=== PATIENT | female | born 1940 | race Hispanic/Latino ===

== ENCOUNTER → 2017-05-31 | Outpatient (CLI) | payer MEDICARE, OTHER ==
[~2017-05-31] MED LIST: ASPI-555 PO; ATOR10TA69 PO; AZIT500T4 PO; BENZ200C53 PO; CARV25TA PO; DULO60CA63 PO; FLUT100B IH; GLIM2TAB3 PO; INVOK100TB PO; IPRATROPIUM/ALBUTEROL SULFATE 3 ML SOLUTION IH ONE; LORA10CA9 PO; METF500T6 PO; OLME1TAB30 PO; OMEP40CA37 PO; POTA10CA44 PO; PRED10TA3 PO; SPIR50TA PO; TRAZ-147 PO
== END | disposition home or self-care (01) ==
LOC: RAH 16:42
PROVIDERS: ATTEND Internal Medicine
DX: M47.895 Other spondylosis, thoracolumbar region (principal)
CPT/HCPCS: 71046

== ENCOUNTER → 2017-06-20 | Outpatient (CLI) | payer OTHER ==
[~2017-06-20] MED LIST changes: -IPRATROPIUM/ALBUTEROL SULFATE 3 ML SOLUTION IH ONE
== END ==
LOC: RAH 13:38
PROVIDERS: ATTEND Internal Medicine
DX: E04.2 Nontoxic multinodular goiter (principal)
CPT/HCPCS: 76536

== ENCOUNTER → 2018-07-08 | Outpatient (CLI) | payer OTHER ==
[~2018-07-08] MED LIST changes: +METF-444 PO; -METF500T6 PO; -TRAZ-147 PO; +TRAZ-187 PO
== END | disposition home or self-care (01) ==
LOC: RAH 13:08
PROVIDERS: ATTEND Internal Medicine
DX: E04.2 Nontoxic multinodular goiter (principal); J98.4 Other disorders of lung
CPT/HCPCS: 71250; 76536

== ENCOUNTER 2019-02-12 09:57 | Emergency (ER) | payer OTHER ==
[~2019-02-12 09:57] MED LIST changes: -DULO60CA63 PO; +DULO60CA64 PO; -GLIM2TAB3 PO; +GLIM2TAB4 PO; +OMEP40CA13 PO; -OMEP40CA37 PO
[2019-02-12] MEDS ORDERED: ONDANSETRON HCL 4 MG/2 ML VIAL ONE (10:24)
[2019-02-12 10:26] LABS: BASOPHILS % (AUTO) 0.4 % (0.0-5.0); EOSINOPHILS % (AUTO) 4.2 % (0.0-8.0); HEMATOCRIT 46.6 % (36-48); LYMPHOCYTES % (AUTO) 21.1 % (21.0-51.0); MEAN CORPUSCULAR HEMOGLOBIN 29.7 pg (27.0-33.0); MEAN CORPUSCULAR HGB CONC 33.8 g/dL (32.0-36.0); MEAN CORPUSCULAR VOLUME 87.9 fL (79-99); MONOCYTES % (AUTO) 7.6 % (3.0-13.0); NEUTROPHILS % (AUTO) 66.7 % (40.0-77.0); PLATELET COUNT (AUTO) 198 K/uL (130-400); RED CELL DISTRIBUTION WIDTH 13.7 % (11.0-15.5); WHITE BLOOD COUNT (AUTO) 9.8 K/uL (4.8-10.8)
[2019-02-12] MEDS ORDERED: LABETALOL 20 MG/4 ML DISP.SYRIN IV ONE (10:27)
[2019-02-12 10:42] LABS: CREATININE 1.1 mg/dL (0.5-1.5); POTASSIUM 3.3 mmol/L (3.5-5.1)
[2019-02-12 10:44] LABS: ALBUMIN 3.6 g/dL (3.5-5.0); BILIRUBIN,DIRECT 0.1 mg/dL (0.0-0.3); BILIRUBIN,TOTAL 0.6 mg/dL (0.2-1.0); TOTAL PROTEIN, SERUM 7.3 g/dL (6.0-8.3)
[2019-02-12 10:52] LABS: INR 0.94 (0.85-1.15); PARTIAL THROMBOPLASTIN TIME 23.8 SEC (26.3-35.5); PROTHROMBIN TIME 9.7 SEC (9.6-11.6)
[2019-02-12 11:21] LABS: B-TYPE NATRIURETIC PEPTIDE 91 pg/mL (0-100)
[2019-02-12] MEDS ORDERED: FUROSEMIDE 10 MG/ML 2ML VIAL ONE (12:01)
== END 2019-02-12 12:52 | disposition home or self-care (01) ==
LOC: EDH 09:57
DX: I10 Essential (primary) hypertension (principal); R60.0 Localized edema; J45.909 Unspecified asthma, uncomplicated; E11.9 Type 2 diabetes mellitus without complications; Z91.041 Radiographic dye allergy status; E78.5 Hyperlipidemia, unspecified
CPT/HCPCS: 36415; 70450; 80048; 80076; 82550; 83880; 84484; 85025; 85610; 85730; 93005; 93970; 96374; 96375; 99284; J1940; J2405

== ENCOUNTER → 2024-07-20 | Outpatient (CLI) | payer MEDICARE ==
[~2024-07-20] MED LIST changes: +AMLO-258 PO; -ASPI-555 PO; -AZIT500T4 PO; -BENZ200C53 PO; -CARV25TA PO; +DAPA10TA PO; +DAPA5TAB PO; +DOXA2TAB2 PO; -DULO60CA64 PO; +ESCI-8 PO; -FLUT100B IH; +GLIM2TAB30 PO; -GLIM2TAB4 PO; -INVOK100TB PO; -LORA10CA9 PO; +MELA1TAB52 PO; -METF-444 PO; -OLME1TAB30 PO; -OMEP40CA13 PO; +OMEP40CA21 PO; +POTA-202 PO; -POTA10CA44 PO; +POTA10CA95 PO; -PRED10TA3 PO; +TELM1TAB88 PO; +[UNRECOGNIZED DRUG - CODE] PO
[2024-07-20 16:26] LABS: CREATININE 1.2 mg/dL (0.5-1.0); MAGNESIUM 1.6 mg/dL (1.80-2.40)
[2024-07-20 16:30] LABS: POTASSIUM 2.7 mmol/L (3.5-5.1)
== END | disposition home or self-care (01) ==
LOC: LAB 13:20
PROVIDERS: ATTEND Internal Medicine Cardiovascular Disease
DX: I13.0 Hypertensive heart and chronic kidney disease with heart failure and stage 1 through stage 4 chronic kidney disease, or unspecified chronic kidney disease (principal); E11.22 Type 2 diabetes mellitus with diabetic chronic kidney disease; I50.32 Chronic diastolic (congestive) heart failure; N18.32 Chronic kidney disease, stage 3b; E87.6 Hypokalemia
CPT/HCPCS: 36415; 80048; 83735

== ENCOUNTER → 2024-11-17 | Outpatient (CLI) | payer MEDICARE ==
[~2024-11-17] MED LIST changes: -DAPA5TAB PO; +LOSA50TA64 PO; -POTA10CA95 PO; -TELM1TAB88 PO; -[UNRECOGNIZED DRUG - CODE] PO
--- NOTE | 2024-11-18 14:24 | HMCIMG ---
EXAM: CT Abdomen Without IV contrast CLINICAL HISTORY: Benign neoplasm of unspecified adrenal gland TECHNIQUE: Axial computed tomography images of the abdomen without intravenous contrast. CONTRAST: No IV contrast. COMPARISON: 04/10/10 FINDINGS: LUNG BASES: Subtle ground-glass haziness involving the medial basal segment of the right lower lobe. Otherwise, the lung bases appear clear. No pleural effusions are seen. LIVER: Simple hepatic cyst in the left lobe of the liver. Otherwise, the liver appears unremarkable. GALLBLADDER AND BILE DUCTS: The gallbladder is surgically removed. no biliary ductal dilatation is evident. PANCREAS: Unremarkable. SPLEEN: Unremarkable. ADRENAL GLANDS: Unremarkable. KIDNEYS AND URETERS: 4 mm-sized calculus at the mid pole of the left kidney. Cortical scarring at the mid pole of the left kidney with minimal bilateral perinephric fat stranding, advise renal function test correlation. No hydronephrosis. Approximately 45 x 43 x 40 mm-sized well-defined, isodense soft tissue density lesion with focal calcification foci within, in the left suprarenal region, with loss of fat plane with the left adrenal gland, suggestive of underlying neoplastic aetiology. Advise further evaluation for a detailed evaluation STOMACH AND BOWEL: Unremarkable appearance of the stomach and visualized bowel. PERITONEUM: No free fluid. No free air. LYMPH NODES: No lymphadenopathy is evident. VASCULATURE: Atherosclerotic changes involving visualized arterial vasculature in the form of fibrocalcified plaque. No evidence of abdominal aortic aneurysm. Osseous degenerative changes. Approximately 8 mm gap defect noted at the umbilicus region, through which herniation of the omental fat, suggestive of umbilical hernia, is likelyIMPRESSION: 1. 45 x 43 x 40 mm left suprarenal soft tissue density lesion with focal calcifications, suspicious for neoplasm. Further evaluation with a contrast-enhanced CT or MRI is recommended. 2. 4 mm left renal calculus and cortical scarring at the left kidney mid pole with minimal bilateral perinephric fat stranding. 3. No bowel obstruction. 8 mm umbilical hernia. No bowel containing hernia. 4. Subtle ground-glass opacity in the right lower lobe medial basal segment. /[place]
== END | disposition home or self-care (01) ==
LOC: RAH 09:10
PROVIDERS: ATTEND Internal Medicine Cardiovascular Disease
DX: D35.00 Benign neoplasm of unspecified adrenal gland (principal); K42.9 Umbilical hernia without obstruction or gangrene; N20.0 Calculus of kidney; K76.89 Other specified diseases of liver; I70.8 Atherosclerosis of other arteries; Z90.49 Acquired absence of other specified parts of digestive tract
CPT/HCPCS: 74150